=== PATIENT | female | born 1945 | race Caucasian/White ===

== ENCOUNTER 2017-04-03 14:01 | Emergency (ER) | payer MEDICARE ==
--- NOTE | 2017-05-01 16:38 | ER ---
ADMIT: 04/03/2017 RM/LOC: ER [facility] MR#: [id number] [address] [address] [address] [place] [address] Emergency Room Report SEX: F AGE: 71 : 1945 DATE: 04/03/2017 HISTORY OF PRESENT ILLNESS: This patient comes to the ER for a fall. She tripped on a dog crate and fell catching her forehead. She has a small laceration right by her left eyebrow and a small contusion to her forehead. No vomiting or diarrhea or no loss of consciousness. PHYSICAL EXAMINATION: She does have a small laceration to her left eyebrow. She does have a little bit of pain in the left side of her forehead. CT scan of her head was normal. I used Dermabond to close the laceration, edges came together quite well. We will have her follow up with her primary as needed. DIAGNOSIS: Left forehead laceration, left forehead contusion. OLIVA Carlson / Dylan Hurt MD / taz JOB #: [id number] CC: Dylan Hurt MD, Attending Physician Matthew Marcial MD, Family Physician
== END 2017-04-03 16:20 | disposition home or self-care (01) ==
LOC: ER 14:01
PROC: 0HQ1XZZ Repair Face Skin, External Approach (ICD-10-PCS; principal; 2017-04-03)
DX: S01.81XA Laceration without foreign body of other part of head, initial encounter (principal); I10 Essential (primary) hypertension; E11.9 Type 2 diabetes mellitus without complications; F17.210 Nicotine dependence, cigarettes, uncomplicated; E78.5 Hyperlipidemia, unspecified; Z79.82 Long term (current) use of aspirin; Z79.899 Other long term (current) drug therapy; Z79.4 Long term (current) use of insulin; W01.0XXA Fall on same level from slipping, tripping and stumbling without subsequent striking against object, initial encounter; Y92.009 Unspecified place in unspecified non-institutional (private) residence as the place of occurrence of the external cause

== ENCOUNTER 2017-04-03 22:20 | Emergency (ER) | payer MEDICARE ==
--- NOTE | 2017-04-05 09:33 | ER ---
ADMIT: 04/03/2017 RM/LOC: ER [facility] MR#: [id number] [address] [facility] [address] [place], [place] [address] [address] [place] [address] Emergency Room Report SEX: F AGE: 71 : 1945 DATE: 04/03/2017 ADDENDUM: This patient comes into the ER because she was at home. She tripped on the corner of her dog crate fell and hit her face on the floor. She has a small abrasion to the left side of her forehead and a small laceration on her left forehead. She thinks that she may have an instant loss of consciousness, but came to right away. She does have mild pain in her cervical spine, but she has fractured it in the past and does have chronic pain. PHYSICAL EXAMINATION: She has a small 1 cm laceration to the distal aspect of the left eyebrow. Eyes are EOMI and PERRLA. She also has a small abrasion to her forehead. She is slightly tender to palpation along the cervical spine. She is alert and oriented, answers questions and speaks appropriately. No other injuries. CT scan of her head and C-spine were negative. DIAGNOSIS: Forehead laceration and forehead contusion. The patient was given Edgarton for pain. Dermabond was able to get good wound closure to that small laceration. She was feeling better upon discharge. She is to follow up with her primary as needed. Please see my T-sheet. OLIVA Carlson / Yinka Anthony MD / modl JOB #: [id number] CC: Alfredito Pepe MD, Attending Physician Matthew Marcial MD
== END 2017-04-04 00:15 | disposition home or self-care (01) ==
LOC: ER 22:20
PROC: 2W3QX1Z Immobilization of Right Lower Leg using Splint (ICD-10-PCS; principal; 2017-04-03)
DX: S01.81XA Laceration without foreign body of other part of head, initial encounter (principal); F17.210 Nicotine dependence, cigarettes, uncomplicated; I10 Essential (primary) hypertension; J44.9 Chronic obstructive pulmonary disease, unspecified; E11.9 Type 2 diabetes mellitus without complications; E78.5 Hyperlipidemia, unspecified; W54.8XXA Other contact with dog, initial encounter; Y92.009 Unspecified place in unspecified non-institutional (private) residence as the place of occurrence of the external cause